=== PATIENT | female | born 1950 | race Caucasian/White ===

== ENCOUNTER 2020-10-04 08:29 | Outpatient (RCR) | payer MEDICARE, SELFPAY ==
[2020-10-04] MEDS: COVID-19 VACC, MRNA(PFIZER)/PF 30 MCG/0.3 ML SYRINGE IM (13:30)
[2020-10-25] MEDS: COVID-19 VACC, MRNA(PFIZER)/PF 30 MCG/0.3 ML SYRINGE IM (13:20)
== END 2021-01-01 23:59 ==
LOC: IMMUN 08:29
PROVIDERS: PCP Family Medicine; Visit Provider Family Medicine
DX: Z23 Encounter for immunization (principal)
CPT/HCPCS: 0001A; 0002A; 91300

== ENCOUNTER → 2020-12-20 11:29 | Outpatient (CLI) | payer MEDICARE, SELFPAY ==
--- NOTE | 2020-12-20 11:34 | RAD_ITS ---
STUDY: X-RAY CHEST REASON FOR EXAM: Female, 70 years old. Tobacco abuse. Leg weakness and cough. TECHNIQUE: PA and lateral views of the chest. COMPARISON: None. FINDINGS: The lungs are clear and expanded. There is no demonstrated pleural abnormality. Normal size heart. Normal mediastinum and jace. Normal visualized pulmonary arteries. There is atherosclerotic calcification of the aortic arch with tortuosity. There is demineralization of the osseous structures. There is degenerative osteoarthritis of the bilateral shoulders. There is no demonstrated abnormality of the visualized soft tissue structures of the upper abdomen. RAD/Chest PA and Lateral IMPRESSION: No acute cardiopulmonary disease. Electronically Signed: Marc Larkin DO at 16:47 EDT Tel [phone], Service support ,
--- NOTE | 2020-12-20 11:34 | RAD_ITS ---
STUDY: X-RAY - LUMBOSACRAL SPINE REASON FOR EXAM: Female, 70 years old. Ataxia. TECHNIQUE: 6 view(s) of the lumbosacral spine were obtained. COMPARISON: None FINDINGS: There is slight exaggeration of lumbar lordosis. There is a dextroscoliosis of the thoracolumbar spine with the convexity at L2. There is normal alignment of the vertebrae. There is demineralization of the lumbar vertebrae. There is multi-level degenerative disc disease with multi-level disc space narrowing. There is no evidence of acute fracture or loss of vertebral axial height.. There is no spondylolysis. Normal bilateral sacral ala, sacroiliac joints, and visualized sacrum. There is atherosclerotic calcification of the abdominal aorta without a demonstrated aneurysm. RAD/L/S Spine Bending Flex/Ext IMPRESSION: Scoliosis and degenerative changes of the lumbar spine. If there is concern for spinal cord or nerve root abnormality, MRI is recommended. Electronically Signed: Marc Larkin DO at 16:49 EDT Tel [phone], Service support ,
[2020-12-20 15:46] LABS: Absolute Lymphocyte Count 1.17 X10^3/uL (0.83-4.51); Basophil# 0.02 X10^3/uL; Basophil% 0.3 % (0-1); Eosinophil# 0.01 X10^3/uL; Eosinophils% 0.2 % (0-5); Erythrocyte Sedimentation Rate 23 mm/hr (0-30); Hematocrit 37.9 % (37-47); Hemoglobin 12.8 g/dL (12.0-15.0); Lymphocyte # 1.17 X10^3/ul (0.83-4.51); Lymphocyte % 19.2 % (19-41); Mean Corp Hgb Conc 33.8 g/dL (32-36); Mean Corpuscular Hgb 30.7 pg (27.0-32.0); Mean Corpuscular Volume 90.9 fL (81-99); Mean Platelet Vol. 9.2 fl (6.2-12.0); Monocyte# 0.88 X10^3/uL; Monocyte% 14.4 % (0-10); NRBC Flagged by Analyzer 0 % (0-5); Neutrophil # 4.01 X10^3/uL (2.7-7.7); Neutrophil % 65.7 % (47-70); Platelet Count 267 K/mm3 (150-450); RBC Distribution Width CV 13.6 % (11.6-14.6); RBC Distribution Width SD 45.3 fl (35.1-43.9); Red Blood Count 4.17 M/mm3 (4.2-5.4); White Blood Count 6.1 K/mm3 (4.4-11.0)
[2020-12-20 15:53] LABS: ALB/GLOB Ratio 1.2 RATIO (0.9-2.4); AST(SGOT) 24 U/L (15-37); Alanine Aminotransfer ALT/SGPT 32 U/L (13-56); Albumin, Serum 4.1 g/dL (3.2-5.0); Alkaline Phosphatase 60 U/L (45-117); Anion Gap 10 (5-15); BUN 6 mg/dL (7-18); BUN/Creat Ratio 8.7 RATIO (10-20); CRP < 2.90 mg/L (0.0-3.0); Calcium,Total 9.1 mg/dL (8.5-10.1); Chloride 97 mmol/L (98-107); Creatinine, Serum 0.69 mg/dL (0.55-1.02); EST Glomerular Filtration Rate 90 mL/min (>60); Est Glom Filt Rate - Afr Amer 108 mL/min (>60); Globulin 3.4 g/dL (2.2-4.2); Glucose 95 mg/dL (74-106); Potassium 4.1 mmol/L (3.5-5.1); Protein, Total 7.5 g/dL (6.4-8.2); Sodium Level 129 mmol/L (136-145); Thyroid Stim Hormone (TSH) 1.18 uIU/mL (0.358-3.74)
[2020-12-20 15:56] LABS: Syphilis Antibodies Non-reactive; Vitamin B12 344 pg/mL (211-911)
== END ==
PROVIDERS: PCP Family Medicine; Referring Provider Family Medicine; Visit Provider Family Medicine
DX: R27.8 Other lack of coordination (principal); Z72.0 Tobacco use
CPT/HCPCS: 71046; 72120; 80053; 82607; 82746; 84443; 85025; 85652; 86140; 86780

== ENCOUNTER → 2020-12-28 07:03 | Outpatient (CLI) | payer MEDICARE, SELFPAY ==
[2020-12-28 10:16] LABS: Urine Sodium 79 mmol/L (Not Establ.)
[2020-12-28 10:27] LABS: Anion Gap 8 (5-15); BUN 6 mg/dL (7-18); BUN/Creat Ratio 7.9 RATIO (10-20); Calcium,Total 9.2 mg/dL (8.5-10.1); Chloride 96 mmol/L (98-107); Creatinine, Serum 0.76 mg/dL (0.55-1.02); EST Glomerular Filtration Rate 80 mL/min (>60); Est Glom Filt Rate - Afr Amer 96 mL/min (>60); Glucose 108 mg/dL (74-106); Magnesium 2.4 mg/dL (1.6-2.6); Potassium 4.3 mmol/L (3.5-5.1); Sodium Level 130 mmol/L (136-145)
== END ==
PROVIDERS: PCP Family Medicine; Referring Provider Family Medicine; Visit Provider Family Medicine
DX: R79.89 Other specified abnormal findings of blood chemistry (principal)
CPT/HCPCS: 36415; 80048; 82570; 83735; 84300

== ENCOUNTER → 2021-01-08 14:50 | Outpatient (CLI) | payer MEDICARE, SELFPAY ==
--- NOTE | 2021-01-08 14:54 | CT_ITS ---
STUDY: CT CHEST WITH CONTRAST REASON FOR EXAM: Female, 70 years old. Tobacco abuse and new onset SIADH RADIATION DOSAGE (If Supplied By Facility): CTDIvol = ( 6.48 ) mGy, DLP = ( 222.51 ) mGycm TECHNIQUE: Transaxial imaging was performed following intravenous administration of IV 100mL Isovue-300. Individualized dose optimization techniques were used for this CT. COMPARISON: None. FINDINGS: Heterogeneous right thyroid. Recommend dedicated thyroid ultrasound for further evaluation. The lungs are normal. There is no demonstrated pleural abnormality. There are calcifications of the coronary arteries. Normal mediastinum. Normal hilar regions. Normal enhanced pulmonary arteries. Normal aorta arch and descending thoracic aorta. Normal osseous structures. There is no demonstrated abnormality of the visualized upper abdomen. CT/Chest WITH Contrast IMPRESSION: Heterogeneous right thyroid. Recommend thyroid ultrasound for further evaluation. Normal lung parenchyma. Electronically Signed: Kirill Cheng MD at 21:56 EDT Tel , Service support ,
== END ==
PROVIDERS: PCP Family Medicine; Referring Provider Family Medicine; Visit Provider Family Medicine
DX: E22.2 Syndrome of inappropriate secretion of antidiuretic hormone (principal); Z72.0 Tobacco use
CPT/HCPCS: 71260; Q9967

== ENCOUNTER → 2021-01-09 07:12 | Outpatient (CLI) | payer MEDICARE, SELFPAY ==
--- NOTE | 2021-01-09 07:21 | MRI_ITS ---
HISTORY: Ataxia. TECHNIQUE: Multiplanar and multisequence MR images of the brain were obtained without and with IV gadolinium. IV Contrast dosage and agent: 10 cc dotarem. # of images incl. paperwork: 327. COMPARISON: None. FINDINGS: BRAIN PARENCHYMA: Advanced increased T2 FLAIR signal in the bilateral cerebral white matter. Chronic basal ganglia and thalamic lacunar infarcts. No abnormal focus of restricted diffusion. No enhancing lesion in the brain parenchyma. INTRACRANIAL HEMORRHAGE: No acute intracranial hemorrhage. CSF SPACES: Moderate generalized volume loss. No midline shift or other significant mass effect. No extra-axial fluid collection. VESSELS: Major intracranial flow voids maintained. ORBITS: Symmetric in appearance. PARANASAL SINUSES: Fluid in the maxillary sinuses. MRI/Brain W/WO Contrast IMPRESSION: No evidence of enhancing intracranial mass, acute infarct, or acute intracranial hemorrhage. Advanced chronic involutional and white matter changes. at 1031 Reported and signed by: Sarah Sellers MD Electronically Signed: Sarah Sellers MD at 10:30 EDT Tel , Service support ,
== END ==
PROVIDERS: PCP Family Medicine; Referring Provider Family Medicine; Visit Provider Family Medicine
DX: R27.8 Other lack of coordination (principal)
CPT/HCPCS: 70553; A9575

== ENCOUNTER → 2021-01-11 12:03 | Outpatient (CLI) | payer MEDICARE, SELFPAY ==
--- NOTE | 2021-01-11 12:07 | US_ITS ---
STUDY: THYROID ULTRASOUND REASON FOR EXAM: Female, 70 years old. heterogenous TECHNIQUE: Ultrasound evaluation of the thyroid was performed with real-time and static childers-scale imaging. COMPARISON: CT the chest 01/08/2021 FINDINGS: RIGHT LOBE: The right lobe of the thyroid gland measures 4.3 x 1.9 x 1.7 cm. There is a heterogeneous echotexture. Nodule 1:12 x 8 x 10 mm solid isoechoic wider than tall ill-defined marginated nodule with no echogenic foci (TR 3) in the medial right lobe consistent with an adenoma. LEFT LOBE: The left lobe of the thyroid gland measures 3.0 x 1.2 x 0.8 cm. There is a heterogeneous echotexture. Nodule 2:6 x 4 x 6 mm solid hypoechoic wider than tall ill-defined marginated nodule with no echogenic foci (TR 4) in the posterior left lobe consistent with an adenoma. ISTHMUS: The isthmus measures 3 mm thick. . The regional lymph nodes are normal. US/Thyroid IMPRESSION: Thyroiditis with 2 small adenomas. Electronically Signed: Darío Maria MD at 16:58 EDT Tel , Service support ,
== END ==
PROVIDERS: PCP Family Medicine; Referring Provider Family Medicine; Visit Provider Family Medicine
DX: R93.89 Abnormal findings on diagnostic imaging of other specified body structures (principal)
CPT/HCPCS: 76536

== ENCOUNTER → 2021-02-12 08:35 | Outpatient (CLI) | payer MEDICARE, SELFPAY ==
[2021-02-12 10:05] LABS: Absolute Lymphocyte Count 1.66 X10^3/uL (0.83-4.51); Absolute Neutrophil Count 4.3 X10^3/uL (2.0-7.7); Basophil# 0.04 X10^3/uL; Basophil% 0.6 % (0-1); Eosinophil# 0.05 X10^3/uL; Eosinophils% 0.7 % (0-5); Hematocrit 38.5 % (37-47); Hemoglobin 12.9 g/dL (12.0-15.0); Lymphocyte # 1.66 X10^3/ul (0.83-4.51); Lymphocyte % 23.4 % (19-41); Mean Corp Hgb Conc 33.5 g/dL (32-36); Mean Corpuscular Hgb 30.9 pg (27.0-32.0); Mean Corpuscular Volume 92.3 fL (81-99); Mean Platelet Vol. 8.9 fl (6.2-12.0); Monocyte# 0.99 X10^3/uL; NRBC Flagged by Analyzer 0 % (0-5); Neutrophil # 4.32 X10^3/uL (2.7-7.7); Platelet Count 293 K/mm3 (150-450); RBC Distribution Width CV 13.4 % (11.6-14.6); RBC Distribution Width SD 45.9 fl (35.1-43.9); Red Blood Count 4.17 M/mm3 (4.2-5.4); White Blood Count 7.1 K/mm3 (4.4-11.0)
[2021-02-12 10:29] LABS: ALB/GLOB Ratio 1.2 RATIO (0.9-2.4); AST(SGOT) 15 U/L (15-37); Alanine Aminotransfer ALT/SGPT 25 U/L (13-56); Albumin, Serum 4.1 g/dL (3.2-5.0); Alkaline Phosphatase 76 U/L (45-117); Anion Gap 8 (5-15); BUN 11 mg/dL (7-18); BUN/Creat Ratio 14.8 RATIO (10-20); Chloride 95 mmol/L (98-107); Creatinine, Serum 0.74 mg/dL (0.55-1.02); EST Glomerular Filtration Rate 82 mL/min (>60); Est Glom Filt Rate - Afr Amer 99 mL/min (>60); Globulin 3.5 g/dL (2.2-4.2); Glucose 112 mg/dL (74-106); Potassium 4.3 mmol/L (3.5-5.1); Protein, Total 7.6 g/dL (6.4-8.2); Sodium Level 130 mmol/L (136-145); Thyroid Stim Hormone (TSH) 0.97 uIU/mL (0.358-3.74); Vitamin B12 735 pg/mL (211-911)
[2021-02-12 16:10] LABS: Microalbumin,Random Urine 13.2 mg/L (NO RANGE EST.); Microalbumin:Creatinine Ratio 10.2 mg/g CRE (<30 mg/g CRE); Urine Sodium 62 mmol/L (Not Establ.)
== END ==
PROVIDERS: PCP Family Medicine; Visit Provider Family Medicine
DX: R27.0 Ataxia, unspecified (principal); E22.2 Syndrome of inappropriate secretion of antidiuretic hormone; I10 Essential (primary) hypertension
CPT/HCPCS: 36415; 80053; 82043; 82570; 82607; 84300; 84443; 85025

== ENCOUNTER → 2021-03-25 07:19 | Outpatient (CLI) | payer MEDICARE, SELFPAY ==
[2021-03-25 10:25] LABS: Anion Gap 4 (5-15); BUN 18 mg/dL (7-18); BUN/Creat Ratio 26.8 RATIO (10-20); Chloride 102 mmol/L (98-107); Cholesterol 238 mg/dL (200); Creatinine, Serum 0.67 mg/dL (0.55-1.02); EST Glomerular Filtration Rate 92 mL/min (>60); Est Glom Filt Rate - Afr Amer 111 mL/min (>60); Glucose 104 mg/dL (74-106); High Density Lipoprotein 79 mg/dL; Potassium 3.9 mmol/L (3.5-5.1); Sodium Level 134 mmol/L (136-145); Triglycerides 89 mg/dL; Very Low Density Lipoprotein 18 mg/dL (5-40)
[2021-03-25 10:33] LABS: Hemoglobin A1c 5.6 % (3.8-5.6)
[2021-03-27 14:20] LABS: Vitamin D 1,25-Dihydroxy 32.1 pg/mL (19.9-79.3)
== END ==
PROVIDERS: PCP Family Medicine; Referring Provider Psychiatry & Neurology Neurology; Visit Provider Psychiatry & Neurology Neurology
DX: M85.80 Other specified disorders of bone density and structure, unspecified site (principal); G62.9 Polyneuropathy, unspecified; I10 Essential (primary) hypertension; R73.9 Hyperglycemia, unspecified
CPT/HCPCS: 36415; 80048; 80061; 82652; 83036; 83883; 84425

== ENCOUNTER → 2021-03-29 12:22 | Outpatient (CLI) | payer MEDICARE, SELFPAY ==
--- NOTE | 2021-03-29 12:24 | MRI_ITS ---
STUDY: MRI LUMBAR SPINE WITHOUT CONTRAST REASON FOR EXAM: Female, 70 years old. Scoliosis, gait disorder TECHNIQUE: Standardized fat and water weighted pulse sequences were obtained in the sagittal and axial planes. COMPARISON: X-ray 12/20/2020 FINDINGS: T12-L1: Normal endplates. Normal disc height, hydration and morphology. Normal bilateral facet joints. Normal central canal and bilateral lateral recesses. Normal bilateral intervertebral neural foramina. Normal lumbar lordosis. Mild S-shaped scoliosis with dextroscoliosis of the thoracic lumbar spine levoscoliosis lower lumbar spine. Normal conus medullaris that terminates at the T12/L1. L1-2: Large central disc protrusion produces severe spinal stenosis with severe bilateral lateral recess stenosis with effacement of the L2 nerve roots bilaterally and moderate left neural foraminal stenosis. L2-3: Mild bilateral facet hypertrophy and moderate ligament flavum hypertrophy. Moderate bilobed disc protrusion produces moderate spinal stenosis with moderate bilateral lateral recess stenosis with abutment of the L3 nerve roots bilaterally and mild left neural foraminal stenosis. L3-4: Mild bilateral facet hypertrophy and moderate ligament flavum hypertrophy. Moderate bilobed disc protrusion produces moderate spinal stenosis with moderate bilateral lateral recess stenosis with abutment of the L4 nerve roots bilaterally and moderate bilateral neural foraminal stenosis. L4-5: Mild bilateral facet hypertrophy and ligament flavum hypertrophy. Mild broad disc protrusion produces mild spinal stenosis and mild right neural foraminal stenosis. L5-S1: Mild bilateral facet hypertrophy and ligament flavum hypertrophy. No disc protrusion, spinal stenosis, neural foraminal stenosis. Normal visualized sacral ala. Normal visualized paraspinous soft tissue structures. MRI/Spine Lumbar (Routine) IMPRESSION: S-shaped scoliosis with degenerative disc disease as described above. Electronically Signed: Darío Maria MD at 14:37 EDT Tel , Service support ,
--- NOTE | 2021-03-29 12:24 | MRI_ITS ---
STUDY: MRI CERVICAL SPINE WITHOUT CONTRAST REASON FOR EXAM: Female, 70 years old. Myelopathy TECHNIQUE: Standardized fat and water weighted pulse sequences were obtained in the sagittal and axial planes. COMPARISON: None FINDINGS: Normal foramen magnum and brainstem-cervical cord junction. Normal craniovertebral junction. Normal anterior atlantoaxial articulation. Normal odontoid process. Normal cervical lordosis. Normal vertebral bodies and posterior osseous elements. C2-3: Normal endplates. Normal disc height, signal and morphology. Normal central canal and intervertebral neural foramina. C3-4: Normal endplates. Normal disc height, signal and morphology. Normal central canal and intervertebral neural foramina. C4-5: Mild bilobed disc osteophyte complex and bilateral uncovertebral joint hypertrophy produces moderate spinal stenosis with abutment of the central spinal cord and moderate bilateral neural foraminal stenosis. C5-6: Mild bilobed disc osteophyte complex and bilateral uncovertebral joint hypertrophy produces moderate spinal stenosis with abutment of the central spinal cord and moderate bilateral neural foraminal stenosis. C6-7: Mild bilateral disc osteophyte complex and bilateral degenerative hypertrophy produce mild spinal stenosis and mild bilateral neural foraminal stenosis. C7-T1: Normal endplates. Normal disc height, signal and morphology. Normal central canal and intervertebral neural foramina. Normal cervical cord. Normal visualized soft tissue structures. MRI/Spine Cervical (Routine) IMPRESSION: Multilevel degenerative changes, as described above. Electronically Signed: Darío Maria MD at 17:08 EDT Tel , Service support ,
== END ==
PROVIDERS: PCP Family Medicine; Referring Provider Psychiatry & Neurology Neurology; Visit Provider Psychiatry & Neurology Neurology
DX: G95.9 Disease of spinal cord, unspecified (principal); M85.80 Other specified disorders of bone density and structure, unspecified site; M41.9 Scoliosis, unspecified; R26.9 Unspecified abnormalities of gait and mobility
CPT/HCPCS: 72141; 72148

== ENCOUNTER → 2021-04-18 14:17 | Outpatient (CLI) | payer MEDICARE, SELFPAY ==
[2021-04-23 16:09] LABS: Albumin 3.8 g/dL (2.9-4.4); Alpha-1-Globulins 0.3 g/dL (0.0-0.4); Alpha-2-Globulins 0.7 g/dL (0.4-1.0); Gamma Globulin 0.8 g/dL (0.4-1.8); Immunoglobulin A 149 mg/dL (64-422); Immunoglobulin G 815 mg/dL (586-1602); Immunoglobulin M 43 mg/dL (26-217); PROEL- TOTAL PROTEIN 6.8 g/dL (6.0-8.5)
[2021-04-23 16:19] LABS: IMMUNOFIXATION RESULT,S Comment: (.)
== END ==
PROVIDERS: PCP Family Medicine; Referring Provider Psychiatry & Neurology Neurology; Visit Provider Psychiatry & Neurology Neurology
DX: G62.9 Polyneuropathy, unspecified (principal)
CPT/HCPCS: 36415; 82784; 84165; 86334; 86335

== ENCOUNTER 2021-04-23 12:00 | Outpatient (RCR) | payer MEDICARE, SELFPAY ==
--- NOTE | 2021-01-02 09:48 | HP.PTEVAL_ITS ---
Patient's Visit Information CHUCKY MCGOVERN is a 70 year old F referred to Physical Therapy by Dr. Lalit Blount MD with a diagnosis of gait ataxia. Date of Evaluation: 01/02/21 Physical Therapist: Lalit Ha, DPT, OCS, CSCS - Visit Plan Frequency: 2x /Week Duration: 2 Months Plan: 2x/week for 4-10 weeks . Please start with... Gait training with wh walker(contacting doctor to get scirpt and give to patient when it arrives, told son and pt that wheels for her walker at home are appropriate and necessary for safe community ambulation and recommended using at home). Blanace training with FW weight shift, narrow JONATAN, gait training with decreasing AD, foam balance, VOR balance and sink strnghening progressing to I home progrram as safety allows. - Subjective Can't walk well. Has been worsening over since covid started adn did nto go a nywhere or do anything. Has small house and did not leave house. Used cane. Did not need AD prior to covid. Does nto have neuropathy, no numbness or tingly. Feel weak when she is moving. No spinning or dizzyness. Feels unsteady when walking. No regular exercises except a little stationary bike at home. Does some leg lifts and knee bends. Lives alone, drives and can get in and ut of car well. Just hard to walk once she gets places. Dresses self without problem. Has steps to basement whcih she does not need to use. Two steps into house and putting up railing. Holds onto someone as needed. takes trash out carefully, no falls. Laundry is in basement and does that once per week throwing clothes down and doing one step at time with basket. Has cane that she uses. has walker that she does not like. Basic ADL including take care of two dogs on own. Hobbies are reading and taking care of two pomerenes. Has some LBP stiffness frankie m but it works out as she moves. - Objective Ambulates slow with cane and very wide JONATAN. 4 minutes to go 300 feet to eval room. Trasnfers I without EU btu balance challenging standing without holding on at first. Romberg eo 30 and ec 30 with mild perturbations after she gets set in psoition. Foam balance ft eo unable. Would be unable to complete Neurocom balance test at this point but it might be appropriate in the future. Steps require UE and pulling, hesitant to shift weight Fw and puts half foot on next step. LE strength ankles and knees 4- and hips 3+ abd and ext adn 4- flexion. reflexes 3/3 patella and achilles with possible clunic beats achilles. Sensation to gross lgiht touch WNL in LE. UE AROM WNL. coordination to reciprocal toe and heel tap is slight deficits B, heel to udrán test is OK. Pt has defintie neuropathic gait pattern without weight shift Fw, wide JONATAN and small steps but seems to have all the other basics to stay balanced and walk. Walks with wh walker with much better step length and narrower JONATAN safely but L step is still short and VC needed to stay in walker. Recommended wh walker for home. - Balance Scores Functional Gait Assessment Score: 12 % Disability: 60.0000 - Goals Goal 1:: Walk with wh walker home adn community safely and functionally from car into business Goal Time Frame: 4-6 Weeks Goal 2:: FGA to help diminish fall risk Goal Time Frame: 4-6 Weeks Goal 3:: I appropiate HEP to minimize future problems Goal Time Frame: 4-6 Weeks Goal 4:: Pt feel 75% back to normal gait and mobility Goal Time Frame: 4-6 Weeks - Rehabilitation Potential Physical Therapy Diagnosis: gait ataxia causing difficulty with mobility Rehabilitation Potential: Fair - Anticipated Interventions Patient/Client Instruction: Educate patient on: Condition, Risk Factors For the Purpose of:: To improve muscle performance and motor function, To increase tolerance to activity/condition/position, To improve ability of physical actions for home/community/work/leisure, To improve safety with gait Therapeutic Exercise to Include: Strength training, Balance training, Coordination, Gait and locomotor training, Neuromotor development For the Purpose of:: To increase ROM, To improve muscle performance and motor function, To increase tolerance to activity/condition/position, To improve gait and locomotor functions, To improve safety Assistive Devices: Wheeled walker For the Purpose of:: To improve safety with gait Thank you for the opportunity to evaluate your patient. For Medicare and Medicare HMO plans, please review the plan of care and approve it. It will need to be FAXED BACK to us at [phone] for Medicare purposes. For Medicare only, by signing this I certify the plan of care. Please let me know if there are questions or concerns regarding this plan of care. Physician Signature: Date:
--- NOTE | 2021-02-06 11:20 | HP.PTREVAL ---
Dr. Lalit Blount MD, It has been my pleasure to treat CHUCKY MCGOVERN over the last 8 visits for gait ataxia. Please see the progress note below for an update on the physical therapy plan of care! Subjective: Some better overall. Can carry cup of coffee without lid and does not spill it. Balance is good, no falls. No walker used except away from home and just feels better with it. Activities are pretty good at home. No dizzyness in a long time. To doctor next week. Doing sink exercises at home a couple times per day. More balance activities requested. Objective/Function: 20 poits better on DHI. FGA is 7 points better than eval. Gait is still hesitant with wide JONATAN adn lots of side to side movement adn high gaurd with UE, can somewhat correcct with VC. Wh walker still approrpiate and emphasized this today. appropriate to cotninue for balance work with fair prognosis. Plan Plan: 2x/week for 4 weeks to work on gait with narrow JONATAN, balance ex with narrow JONATAN adn step with narrow JONATAN, progress to home balance ex. Pt can ow do her strength at home. Goals Goal 1:: Walk with wh walker home adn community safely and functionally from car into business Goal Time Frame: 4-6 Weeks Goal Progress: Goal Met Goal 2:: FGA to help diminish fall risk Goal Time Frame: 4-6 Weeks Goal Progress: Progressing, approp. Goal 3:: I appropiate HEP to minimize future problems Goal Time Frame: 4-6 Weeks Goal Progress: strength met Goal 4:: Pt feel 75% back to normal gait and mobility Goal Time Frame: 4-6 Weeks Goal Progress: 70% progressing, approp Anticipated Interventions Patient/Client Instruction: Educate patient on: Condition, Risk Factors For the Purpose of:: To improve muscle performance and motor function, To increase tolerance to activity/condition/position, To improve ability of physical actions for home/community/work/leisure, To improve safety with gait Therapeutic Exercise to Include: Strength training, Balance training, Coordination, Gait and locomotor training, Neuromotor development For the Purpose of:: To increase ROM, To improve muscle performance and motor function, To increase tolerance to activity/condition/position, To improve gait and locomotor functions, To improve safety Assistive Devices: Wheeled walker For the Purpose of:: To improve safety with gait Please do not hesitate to contact me at [phone] by phone or if you have questions or concerns regarding this new plan of care! Sincerely, Lalit Ha, DPT, OCS, CSCS
--- NOTE | 2021-03-20 11:33 | HP.PTREVAL_ITS ---
Dr. Lalit Blount MD, It has been my pleasure to treat CHUCKY MCGOVERN over the last 15 visits for gait ataxia. Please see the progress note below for an update on the physical therapy plan of care! Subjective: Doing better.Using cane at home adn no problems. No falls. Balance is improving. Doing execises daily at home. Using wh walker still for longer distances. Stillw ants to walk better meaning without AD. Will have MRI on low back to see if it has effect on legs, also will have NCT. Objective/Function: FGA +2 since last recheck and going the right way. Sill recommend walker at home . Tends to stop feet movement near chair and lean and reach to sit in chair. JONATAN is still wide adn steps still tend to be short and shuffle but can correct with VC to a nice gait pattern for 2-3 steps before digressing back. Overall improved and willing to do HEP and continue weekly in PT as ordered for gait training. Plan Plan: weekly x 4 for gait training working on wide JONATAN, bigger steps and functional balance challenges. Ensure transition safely at chair. If needed, progress home balance and strength ex. Fair prognosis Balance/Gait/Functional tests - Balance/Special Test Scores Functional Gait Assessment Score: 21 % Disability: 30.0000 Dizziness Score: 16 Goals Goal 1:: Walk with wh walker home adn community safely and functionally from car into business Goal Time Frame: 4-6 Weeks Goal Progress: Goal Met Goal 2:: FGA to help diminish fall risk Goal Time Frame: 4-6 Weeks Goal Progress: 21, progressing Goal 3:: I appropiate HEP to minimize future problems Goal Time Frame: 4-6 Weeks Goal Progress: Goal Met Goal 4:: Pt feel 75% back to normal gait and mobility Goal Time Frame: 4-6 Weeks Goal Progress: Goal Met Goal 5:: Walk 150 feet with narrow JONATAN and no short steps and trasnition to sitting wtihotu leaning and reaching for chair prior to turning around. Goal Time Frame: 2-4 Weeks Goal Progress: NEW GOAL Anticipated Interventions Patient/Client Instruction: Educate patient on: Condition, Risk Factors For the Purpose of:: To improve muscle performance and motor function, To increase tolerance to activity/condition/position, To improve ability of physical actions for home/community/work/leisure, To improve safety with gait Therapeutic Exercise to Include: Strength training, Balance training, Coordination, Gait and locomotor training, Neuromotor development For the Purpose of:: To increase ROM, To improve muscle performance and motor f unction, To increase tolerance to activity/condition/position, To improve gait and locomotor functions, To improve safety Assistive Devices: Wheeled walker For the Purpose of:: To improve safety with gait Please do not hesitate to contact me at [phone] by phone or if you have questions or concerns regarding this new plan of care! Sincerely, Lalit Ha, DPT, OCS, CSCS
--- NOTE | 2021-04-23 12:55 | HP.PTDCSUM ---
It has been my pleasure to treat CHUCKY MCGOVERN referred by Dr. Lalit Blount MD, with the diagnosis of gait ataxia for a total of 19 visit(s). Discharge Date: 04/23/21 Please see the following information for a summary of their discharge status. Subjective: Doing home exercises and they are helping. No pain. Mornings are very steady adn worse as day goes unsteady. using cane to get around. Worse after nap. Does ex daily. 2x10. Using walker away from home and cane at home sometimes with nothing. No falls lately. Saw neurologist and thinks. % Improvement: 90 Objective/Function: Pt gait is still wide JONATAN and poor FW weight shift most notable on steps. Needs aD for safety and recommended use wh walker 100%. Educated on neuropathic gait pattern and that she is not improving. Goal 1:: Walk with wh walker home adn community safely and functionally from car into business Goal Progress: Goal Met Goal 2:: FGA to help diminish fall risk Goal Progress: Not Progressing Goal 3:: I appropiate HEP to minimize future problems Goal Progress: Goal Met Goal 4:: Pt feel 75% back to normal gait and mobility Goal Progress: Goal Met Goal 5:: Walk 150 feet with narrow JONATAN and no short steps and trasnition to sitting wtihotu leaning and reaching for chair prior to turning around. Goal Progress: Not Progressing Plan: d/c due to lack of improvement. Needs to do ex and use wh walker regualrly. Will have NCT for neuroapthy. Discharge Comments: Pt to continue HEP. If there are questions or concerns regarding this patient's physical therapy, please feel free to call me at [phone]. Thank you for the referral of this patient. Sincerely, Lalit Ha, DPT, OCS, CSCS Balance/Gait/Functional tests - Balance/Special Test Scores Functional Gait Assessment Score: 19 % Disability: 36.6700 Dizziness Score: 28
== END 2021-04-23 15:37 | disposition home or self-care (01) ==
LOC: PT 12:00
PROVIDERS: PCP Family Medicine; Referring Provider Family Medicine; Visit Provider Family Medicine
DX: R27.0 Ataxia, unspecified (principal)
CPT/HCPCS: 97110; 97116; 97162; 97164; 97530

== ENCOUNTER → 2021-05-29 08:32 | Outpatient (CLI) | payer MEDICARE, SELFPAY ==
--- NOTE | 2021-05-29 10:16 | NEURO ---
NCS and/or EMG Patient Report Ordering Doctor: Kieran Pepe DATE OF SERVICE: 05/29/21 Ino presents for electrodiagnostic testing of the lower limbs. She reports weakness in the legs, worse on the left side. She reports intermittent low back pain Electrodiagnostic Testing: Normal peroneal and tibial motor studies. F-waves and H-reflexes are within normal limits. Sensory responses are normal. Needle EMG testing shows no evidence of denervation with normal motor unit action potentials. Electrodiagnostic impression: This is a normal electrodiagnostic study in the lower limbs. There is no electrodiagnostic evidence for peripheral neuropathy, myopathy or lumbosacral radiculopathy.
== END ==
PROVIDERS: PCP Family Medicine; Referring Provider Psychiatry & Neurology Neurology; Visit Provider Psychiatry & Neurology Neurology
DX: G62.89 Other specified polyneuropathies (principal); M85.80 Other specified disorders of bone density and structure, unspecified site
CPT/HCPCS: 95886; 95912

== ENCOUNTER → 2021-07-02 07:07 | Outpatient (CLI) | payer MEDICARE, SELFPAY ==
[2021-07-02 10:23] LABS: Hematocrit 37.1 % (37-47); Hemoglobin 12.6 g/dL (12.0-15.0); Mean Corpuscular Hgb 32.1 pg (27.0-32.0); Mean Corpuscular Volume 94.4 fL (81-99); Mean Platelet Vol. 9.3 fl (6.2-12.0); Platelet Count 252 K/mm3 (150-450); RBC Distribution Width CV 13.2 % (11.6-14.6); RBC Distribution Width SD 45.8 fl (35.1-43.9); Red Blood Count 3.93 M/mm3 (4.2-5.4)
[2021-07-02 10:46] LABS: Osmolality, Serum 296 mOsm/KG (280-301)
[2021-07-02 10:46] LABS: Osmolality, Urine 680 mOsm/KG
[2021-07-02 10:48] LABS: ALB/GLOB Ratio 1.2 RATIO (0.9-2.4); AST(SGOT) 13 U/L (15-37); Alanine Aminotransfer ALT/SGPT 26 U/L (13-56); Albumin, Serum 4.2 g/dL (3.2-5.0); Alkaline Phosphatase 67 U/L (45-117); Anion Gap 6 (5-15); BUN 16 mg/dL (7-18); Calcium,Total 9.1 mg/dL (8.5-10.1); Chloride 103 mmol/L (98-107); Cholesterol 179 mg/dL (200); Creatinine, Serum 0.84 mg/dL (0.55-1.02); EST Glomerular Filtration Rate 71 mL/min (>60); Est Glom Filt Rate - Afr Amer 86 mL/min (>60); Globulin 3.4 g/dL (2.2-4.2); Glucose 101 mg/dL (74-106); High Density Lipoprotein 87 mg/dL; Potassium 4.5 mmol/L (3.5-5.1); Protein, Total 7.6 g/dL (6.4-8.2); Sodium Level 137 mmol/L (136-145); Triglycerides 62 mg/dL; Very Low Density Lipoprotein 12 mg/dL (5-40)
[2021-07-02 10:50] LABS: Microalbumin,Random Urine 8.2 mg/L (NO RANGE EST.); Microalbumin:Creatinine Ratio 8.8 mg/g CRE (<30 mg/g CRE); Urine Sodium 142 mmol/L (Not Establ.)
== END ==
PROVIDERS: PCP Family Medicine; Referring Provider Family Medicine; Visit Provider Family Medicine
DX: I10 Essential (primary) hypertension (principal); E78.00 Pure hypercholesterolemia, unspecified; E22.2 Syndrome of inappropriate secretion of antidiuretic hormone
CPT/HCPCS: 36415; 80053; 80061; 82043; 82570; 83930; 83935; 84300; 85027

== ENCOUNTER 2021-09-27 07:03 | Outpatient (CLI) | payer MEDICARE, SELFPAY ==
[2021-09-27 10:16] LABS: ALB/GLOB Ratio 1.1 RATIO (0.9-2.4); AST(SGOT) 24 U/L (15-37); Alanine Aminotransfer ALT/SGPT 29 U/L (13-56); Alkaline Phosphatase 58 U/L (45-117); Anion Gap 5 (5-15); BUN 17 mg/dL (7-18); BUN/Creat Ratio 28.1 RATIO (10-20); Calcium,Total 9.6 mg/dL (8.5-10.1); Chloride 104 mmol/L (98-107); Cholesterol 178 mg/dL (200); Creatinine, Serum 0.61 mg/dL (0.55-1.02); EST Glomerular Filtration Rate 103 mL/min (>60); Est Glom Filt Rate - Afr Amer 125 mL/min (>60); Globulin 3.6 g/dL (2.2-4.2); Glucose 108 mg/dL (74-106); High Density Lipoprotein 95 mg/dL; Potassium 4.2 mmol/L (3.5-5.1); Protein, Total 7.6 g/dL (6.4-8.2); Sodium Level 134 mmol/L (136-145); Triglycerides 70 mg/dL; Very Low Density Lipoprotein 14 mg/dL (5-40)
[2021-09-30 17:07] LABS: Alpha-1-Globulins 0.3 g/dL (0.0-0.4); Alpha-2-Globulins 0.8 g/dL (0.4-1.0); Free Kappa Light Chains 17.1 mg/L (3.3-19.4); Free Lambda Light Chains 7.8 mg/L (5.7-26.3); Gamma Globulin 0.8 g/dL (0.4-1.8); Immunoglobulin A 159 mg/dL (64-422); Immunoglobulin G 838 mg/dL (586-1602); Immunoglobulin M 34 mg/dL (26-217); PROEL- TOTAL PROTEIN 6.8 g/dL (6.0-8.5)
[2021-09-30 19:00] LABS: IMMUNOFIXATION RESULT,S Comment: (.)
== END 2021-09-27 23:59 | disposition home or self-care (01) ==
LOC: MTLAB 07:10
PROVIDERS: PCP Family Medicine; Referring Provider Psychiatry & Neurology Neurology; Visit Provider Psychiatry & Neurology Neurology
DX: E78.5 Hyperlipidemia, unspecified (principal); G62.9 Polyneuropathy, unspecified
CPT/HCPCS: 36415; 80053; 80061; 82784; 83883; 84165; 86334

== ENCOUNTER 2022-01-08 11:00 | Outpatient (RCR) | payer MEDICARE, SELFPAY ==
--- NOTE | 2021-10-14 10:58 | HP.PTEVAL_ITS ---
Patient's Visit Information CHUCKY MCGOVERN is a 71 year old F referred to Physical Therapy by Dr. Kieran Pepe MD with a diagnosis of ABNORMALTIES OF GAIT AND MOBILITY,CEREBROVSACULAR DISEASE,SPINAL STENOSIS. Date of Evaluation: 10/14/21 Physical Therapist: Renny Pizarro, PT, Cert MDT, OCS - Visit Plan Frequency: 2x /Week Duration: 4 Weeks Plan: PT INTERVETIONS PROGRESSIVE GAIT AND BALANCE PROGRAM ,FUNCTIONAL STRENGTHENING ,DLS ,LE STRENGTHNEING AND POSTURAL EX'S - Subjective This 76 female presents to physical therapy with gait difficulty ,CVA and back pain . Patient had to prior strokes last was ~ over year ago. Patient has back pain in the morning. Symptoms get better as day goes on with movement . Denies paresthesia/tingling, but has h/o neuropathy. Bowel/bladder-. Patient has had MRI in past lumbar stenosis/HNP and cervical mod DDD and stenosis. Patient sleeps good. Coughing/sneezing -. Patient has no recent falls . Patient uses no device at home but use fww community and Dr Visits but occasionally uses cane. Patient has some difficulty with ADLS . Patient goals to walk better and improve balance. Patient lives [place] home with 3steps and 12 steps basement with rails. Tub/shower set up with seat. Patient was in PT last year has ex's. Patient condition affects QOL. SOCAIL: - Objective POSTURE: mild forward posture. GAIT: ambulates with fww reciprocal pattern mild forward posture ,and ambulates with no device mild ataxia ,increase JONATAN ,decrease step length and unsteady but no LOB. Dynamic: balance fair+. STAIRS: one step at time with rails. MMT( [employer]): quads 47,hamstrings 43,hip flexion 37 ,ankle 42 - Balance/Special Test Scores Functional Gait Assessment Score: 12 % Disability: 60.0000 CATSIB Score (Max score 120 seconds): 75 Lower Extremity Functional Score: 40 - Goals Goal 1:: Patient be I with HEP for balance and strengthening. Goal Time Frame: 4-6 Weeks Goal 2:: Patient to improve quality of gait with/without cane 90% of the time Goal Time Frame: 4-6 Weeks Goal 3:: Patient to improve CATSIB score by 5-10 points to improve nalance Goal Time Frame: 4-6 Weeks Goal 4:: Patient to improve functional gait assessment score by 5-10 pints to improve gait Goal Time Frame: 4-6 Weeks Goal 5:: Patient to improve LFES score by 5-10 points to improve gait and QOL Goal Time Frame: 4-6 Weeks Goal 6:: Patient to demonstrate 50 % improvement with decrease pain LBP and improve function Goal Time Frame: 4-6 Weeks - Rehabilitation Potential Physical Therapy Diagnosis: This patient has h/o CVA and spinal stenosis lumbar causes impairments with gait, function, balance and strength thus benefit from skilled PT Rehabilitation Potential: Good - Anticipated Interventions Patient/Client Instruction: Educate patient on: Condition, Plan of Care For the Purpose of:: To decrease pain, To increase ROM, To improve muscle performance and motor function, To improve ability to perform ADL's, To increase tolerance to activity/condition/position, To improve performance and independence with ADL's, To improve gait and locomotor functions, To increase flexibility/ROM, To improve endurance, To improve balance Therapeutic Exercise to Include: Strength training, Power training, Endurance training, Postural training, Flexibilty training, Gait and locomotor training, Dynamic Lumbar Stabilization For the Purpose of:: To decrease swelling/inflammation, To improve muscle performance and motor function, To improve ability to perform ADL's, To increase tolerance to activity/condition/position, To improve ability of physical actions for home/community/work/leisure, To improve gait and locomotor functions, To increase flexibility/ROM, To improve endurance, To improve balance, To assume or resume ADL's Thank you for the opportunity to evaluate your patient. For Medicare and Medicare HMO plans, please review the plan of care and approve it. It will need to be FAXED BACK to us at [phone] for Medicare purposes. For Medicare only, by signing this I certify the plan of care. Please let me know if there are questions or concerns regarding this plan of care. Physician Signature: Date:
--- NOTE | 2021-11-18 12:24 | HP.PTREVAL_ITS ---
Dr. Kieran Pepe MD, It has been my pleasure to treat CHUCKY MCGOVERN over the last 10 visits for ABNORMALTIES OF GAIT AND MOBILITY,CEREBROVSACULAR DISEASE,SPINAL STENOSIS. Please see the progress note below for an update on the physical therapy plan of care! Subjective: Doing okay Objective/Function: POSTURE: MILD FORWARD POSTURE. GAIT: ambulates with fww ataxia LE. BALANCE: FAIR+ WITH FWW. MMT: QUADS/HAMS 4/5,HIP FLEXION /ABD 4-/5. NEURO: ATAXIA LE , Plan Plan: CONT WITH POC 2XWEEK FOR 4WEEKS. PT INTERVETIONS PROGRESSIVE GAIT AND BALANCE PROGRAM ,FUNCTIONAL STRENGTHENING ,DLS ,LE STRENGTHNEING AND POSTURAL EX'S Balance/Gait/Functional tests - Balance/Special Test Scores Functional Gait Assessment Score: 12 % Disability: 60.0000 CATSIB Score (Max score 120 seconds): 75 Lower Extremity Functional Score: 40 Goals Goal 1:: Patient be I with HEP for balance and strengthening. Goal Time Frame: 4-6 Weeks Goal Progress: Progressing Goal 2:: Patient to improve quality of gait with/without cane 90% of the time Goal Time Frame: 4-6 Weeks Goal Progress: Progressing Goal 3:: Patient to improve CATSIB score by 5-10 points to improve nalance Goal Time Frame: 4-6 Weeks Goal Progress: Progressing Goal 4:: Patient to improve functional gait assessment score by 5-10 pints to i mprove gait Goal Time Frame: 4-6 Weeks Goal Progress: Progressing Goal 5:: Patient to improve LFES score by 5-10 points to improve gait and QOL Goal Time Frame: 4-6 Weeks Goal 6:: Patient to demonstrate 50 % improvement with decrease pain LBP and improve function Goal Time Frame: 4-6 Weeks Goal Progress: Progressing Anticipated Interventions Patient/Client Instruction: Educate patient on: Condition, Plan of Care For the Purpose of:: To decrease pain, To increase ROM, To improve muscle performance and motor function, To improve ability to perform ADL's, To increase tolerance to activity/condition/position, To improve performance and independence with ADL's, To improve gait and locomotor functions, To increase flexibility/ROM, To improve endurance, To improve balance Therapeutic Exercise to Include: Strength training, Power training, Endurance training, Postural training, Flexibilty training, Gait and locomotor training, Dynamic Lumbar Stabilization For the Purpose of:: To decrease swelling/inflammation, To improve muscle performance and motor function, To improve ability to perform ADL's, To increase tolerance to activity/condition/position, To improve ability of physical actions for home/community/work/leisure, To improve gait and locomotor functions, To increase flexibility/ROM, To improve endurance, To improve balance, To assume or resume ADL's Please do not hesitate to contact me at [phone] by phone or if you have questions or concerns regarding this new plan of care! Sincerely, Renny Pizarro, PT, Cert MDT, OCS
--- NOTE | 2022-04-02 13:22 | HP.PT.NRP ---
CHUCKY MCGOVERN was seen in my office for initial evaluation on 10/14/21. The following Plan of Care was established for this patient: Initial Frequency: 2x /Week Initial Duration: 4 Weeks Patient/Client Instruction: Educate patient on: Condition, Plan of Care For the Purpose of:: To decrease pain, To increase ROM, To improve muscle performance and motor function, To improve ability to perform ADL's, To increase tolerance to activity/condition/position, To improve performance and independence with ADL's, To improve gait and locomotor functions, To increase flexibility/ROM, To improve endurance, To improve balance Therapeutic Exercise to Include: Strength training, Power training, Endurance training, Postural training, Flexibilty training, Gait and locomotor training, Dynamic Lumbar Stabilization For the Purpose of:: To decrease swelling/inflammation, To improve muscle performance and motor function, To improve ability to perform ADL's, To increase tolerance to activity/condition/position, To improve ability of physical actions for home/community/work/leisure, To improve gait and locomotor functions, To increase flexibility/ROM, To improve endurance, To improve balance, To assume or resume ADL's This patient was last seen in our office . Pertinent comments regarding their Physical therapy will appear below: Patient was seen for PT gait abnormality and stenosis for balance training and strengthening for 17 visits At this point I will be discontinuing this patient from physical therapy. I would be happy to see this patient again in the future if found appropriate by the physician. Thank you! Renny Pizarro, PT, Cert MDT, OCS Balance/Gait/Functional tests - Balance/Special Test Scores Functional Gait Assessment Score: 12 % Disability: 60.0000 CATSIB Score (Max score 120 seconds): 75 Lower Extremity Functional Score: 40
== END 2022-01-08 19:00 | disposition home or self-care (01) ==
LOC: PT 11:00
PROVIDERS: PCP Family Medicine; Referring Provider Psychiatry & Neurology Neurology; Visit Provider Psychiatry & Neurology Neurology
DX: R26.89 Other abnormalities of gait and mobility (principal); I67.9 Cerebrovascular disease, unspecified; M51.26 Other intervertebral disc displacement, lumbar region; M48.061 Spinal stenosis, lumbar region without neurogenic claudication
CPT/HCPCS: 97110; 97162

== ENCOUNTER → 2022-03-28 | Outpatient (CLI) | payer MEDICARE, SELFPAY ==
[2022-03-28 10:34] LABS: ALB/GLOB Ratio 1.2 RATIO (0.9-2.4); AST(SGOT) 14 U/L (15-37); Alanine Aminotransfer ALT/SGPT 25 U/L (13-56); Alkaline Phosphatase 66 U/L (45-117); Anion Gap 7 (5-15); BUN 8 mg/dL (7-18); Calcium,Total 9.1 mg/dL (8.5-10.1); Chloride 101 mmol/L (98-107); Creatinine, Serum 0.73 mg/dL (0.55-1.02); EST Glomerular Filtration Rate 83 mL/min (>60); Est Glom Filt Rate - Afr Amer 101 mL/min (>60); Globulin 3.4 g/dL (2.2-4.2); Glucose 105 mg/dL (74-106); Potassium 4.2 mmol/L (3.5-5.1); Protein, Total 7.4 g/dL (6.4-8.2); Sodium Level 135 mmol/L (136-145)
[2022-03-28 10:41] LABS: Microalbumin,Random Urine 6.8 mg/L (NO RANGE EST.); Microalbumin:Creatinine Ratio 6.6 mg/g CRE (<30 mg/g CRE); Urine Sodium 96 mmol/L (Not Establ.)
[2022-03-28 10:42] LABS: AST(SGOT) 16 U/L (15-37); Alanine Aminotransfer ALT/SGPT 23 U/L (13-56); Alkaline Phosphatase 64 U/L (45-117); Bilirubin, Direct 0.16 mg/dL (0.00-0.30); Cholesterol 175 mg/dL (200); Globulin 3.5 g/dL (2.2-4.2); High Density Lipoprotein 102 mg/dL; Protein, Total 7.5 g/dL (6.4-8.2); Triglycerides 74 mg/dL; Very Low Density Lipoprotein 15 mg/dL (5-40)
[2022-03-28 10:47] LABS: Osmolality, Serum 287 mOsm/KG (280-301)
[2022-03-28 10:48] LABS: Osmolality, Urine 517 mOsm/KG
[2022-04-02 00:06] LABS: Albumin 4.6 g/dL (2.9-4.4); Alpha-1-Globulins 0.3 g/dL (0.0-0.4); Alpha-2-Globulins 0.8 g/dL (0.4-1.0); Free Kappa Light Chains 19.9 mg/L (3.3-19.4); Free Lambda Light Chains 9.7 mg/L (5.7-26.3); Gamma Globulin 0.6 g/dL (0.4-1.8); Immunoglobulin A 147 mg/dL (64-422); Immunoglobulin G 777 mg/dL (586-1602); Immunoglobulin M 32 mg/dL (26-217); PROEL- TOTAL PROTEIN 7.2 g/dL (6.0-8.5)
[2022-04-02 08:29] LABS: IMMUNOFIXATION RESULT,S Comment: (.)
== END | disposition home or self-care (01) ==
LOC: MTLAB 07:12
PROVIDERS: Psychiatry & Neurology Neurology; PCP Family Medicine; Referring Provider Family Medicine; Visit Provider Family Medicine
DX: E22.2 Syndrome of inappropriate secretion of antidiuretic hormone (principal); I10 Essential (primary) hypertension; G62.9 Polyneuropathy, unspecified; E78.5 Hyperlipidemia, unspecified
CPT/HCPCS: 36415; 80053; 80061; 80076; 82043; 82570; 82784; 83883; 83930; 83935; 84165; 84300; 86334

== ENCOUNTER → 2022-12-03 | Outpatient (CLI) | payer MEDICARE, SELFPAY ==
[2022-12-03 11:05] LABS: ALB/GLOB Ratio 1.3 RATIO (0.9-2.4); AST(SGOT) 14 U/L (15-37); Alanine Aminotransfer ALT/SGPT 20 U/L (13-56); Albumin, Serum 4.1 g/dL (3.2-5.0); Alkaline Phosphatase 72 U/L (45-117); Anion Gap 9 (5-15); BUN 8 mg/dL (7-18); BUN/Creat Ratio 10.8 RATIO (10-20); Calcium,Total 9.3 mg/dL (8.5-10.1); Chloride 99 mmol/L (98-107); Cholesterol 167 mg/dL (200); Creatinine, Serum 0.74 mg/dL (0.55-1.02); EST Glomerular Filtration Rate 82 mL/min (>60); Est Glom Filt Rate - Afr Amer 99 mL/min (>60); Globulin 3.1 g/dL (2.2-4.2); Glucose 104 mg/dL (74-106); High Density Lipoprotein 95 mg/dL; Potassium 4.1 mmol/L (3.5-5.1); Protein, Total 7.2 g/dL (6.4-8.2); Sodium Level 134 mmol/L (136-145); Triglycerides 55 mg/dL; Very Low Density Lipoprotein 11 mg/dL (5-40)
[2022-12-04 17:07] LABS: Albumin 4.1 g/dL (2.9-4.4); Alpha-1-Globulins 0.2 g/dL (0.0-0.4); Alpha-2-Globulins 0.8 g/dL (0.4-1.0); Free Kappa Light Chains 15.1 mg/L (3.3-19.4); Gamma Globulin 0.6 g/dL (0.4-1.8); IMMUNOFIXATION RESULT,S Comment: (.); Immunoglobulin A 138 mg/dL (64-422); Immunoglobulin G 730 mg/dL (586-1602); Immunoglobulin M 29 mg/dL (26-217); PROEL- TOTAL PROTEIN 6.7 g/dL (6.0-8.5)
== END | disposition home or self-care (01) ==
LOC: MTLAB 07:05
PROVIDERS: PCP Family Medicine; Referring Provider Psychiatry & Neurology Neurology; Visit Provider Psychiatry & Neurology Neurology
DX: E78.5 Hyperlipidemia, unspecified (principal); G62.9 Polyneuropathy, unspecified
CPT/HCPCS: 36415; 80053; 80061; 82784; 83883; 84165; 86334

== ENCOUNTER → 2023-01-23 | Outpatient (CLI) | payer MEDICARE, SELFPAY ==
--- NOTE | 2023-01-23 13:35 | CT_ITS ---
STUDY: LOW DOSE CT LUNG CANCER SCREENING REASON FOR EXAM: Female, 72 years old[facility], ongoing. After pack per day for 55 years. RADIATION DOSAGE (If Supplied By Facility): CTDIvol = ( 1.59 ) mGy, DLP = ( 44.46 ) mGycm TECHNIQUE: No contrast was administered. Low dose technique was utilized (average mAS-38 and kVp 120). 1.25 mm axial source images with a slice interval of 1.25-mm were reconstructed in lung windows. 2.5 mm axial source images with a slice interval of 2.5-mm were reconstructed in lung windows. 5.0 mm axial source images with a slice interval of 5.0-mm were reconstructed in soft tissue windows. COMPARISON: Comparison is made with prior study dated January 08, 2021. NODULES: No suspicious nodules are seen. Emphysema: Hyperinflation. Mild degree of emphysematous changes. No suspicious nodules are seen. Endobronchial lesion: Unremarkable. Aorta: Atherosclerotic plaque formation of the aortic arch. CORONARY ARTERIES: Coronary artery calcification is seen. Heart: Unremarkable Pulmonary artery: Unremarkable Mediastinal nodes: Small mediastinal lymph nodes. Other chest and abdominal findings: CT/Low Dose CT Lung Screening IMPRESSION: Lung-RADS category 2 - Continue annual screening with LDCT in 12 months. IMPORTANT NOTES FOR USE: ACR Lung-RADS Version 1.1 Assessment Categories Release Date: 2018 Category: Coded 0-4 bases on nodule(s) with highest degree of suspicion. Negative screen is defined as categories 1 and 2; a positive screen is defined as categories 3 and 4. Category 3 and 4A nodules that are unchanged on interval CT should be coded as category 2, and individuals returned to screening in 12 months. Category 4X: Category 3 or 4 nodules with additional imaging findings that increase the suspicion of lung cancer, such as spiculation, GGN that doubles in size in 1 year, enlarged lymph notes, etc. Category Modifiers: S (significant finding unrelated to lung cancer) Electronically Signed: Derrick Thomas MD at 14:34 EDT ,
== END | disposition home or self-care (01) ==
LOC: CT 13:27
PROVIDERS: PCP Family Medicine; Referring Provider Family Medicine; Visit Provider Family Medicine
DX: F17.210 Nicotine dependence, cigarettes, uncomplicated (principal)
CPT/HCPCS: 71271

== ENCOUNTER → 2023-02-10 | Outpatient (CLI) | payer MEDICARE, SELFPAY ==
--- NOTE | 2023-02-10 12:48 | BI_ITS ---
MAMMOGRAPHY - BILATERAL SCREENING 3-D TOMOSYNTHESIS REASON FOR EXAM: Female, 72 years old. Routine screening PERTINENT HISTORY: No significant family history. TECHNIQUE: 2-D mammograms and 3-D Tomosynthesis of the breast (s) were performed. CAD was performed. COMPARISON: No comparison mammograms available at this time. If any prior films become available, an addendum to this report can be generated. FINDINGS: The breast composition is almost entirely fat. Scattered benign calcifications are seen. No dense spiculated masses or suspicious microcalcifications are identified. No architectural distortion is identified. There is no skin thickening or retraction. There has been no significant change since the prior study. BI/SCRN MAMM (CAD)W/NEYDA BILAT IMPRESSION: No mammographic signs of malignancy. Routine yearly mammograms recommended. ASSESSMENT CATEGORY: BIRADS Category 1: Negative. A letter regarding these results will be sent to the patient by the facility within 30 days. FOLLOW UP RECOMMENDATION: Yearly follow up mammogram recommended. (A) Approximately 10% of breast cancers are not detected by mammography. A normal mammogram should not delay biopsy of a clinically suspicious abnormality. Electronically Signed: Regino Fletcher MD at 13:58 EDT ,
--- NOTE | 2023-02-10 12:57 | BD_ITS ---
STUDY: DUAL ENERGY X-RAY ABSORPTIOMETRY / DXA REASON FOR EXAM: Female, 72 years old. [id number] TECHNIQUE: Bone Mineral Density (BMD) measurements of lumbar spine and bilateral hips were obtained. COMPARISON: None. FINDINGS: Lumbar Spine (L1-L4): g/cm2 (0.997) / T-score (-0.5) / Z-score (1.9) Findings are suggestive of normal bone density with a low fracture risk. Left Femur Total: g/cm2 (0.652) / T-score (-2.4) / Z-score (-0.7) Left Femoral Neck: g/cm2 (0.538) / T-score (-2.8) / Z-score (-0.8) Right Femur Total: g/cm2 (0.685) / T-score (-2.1) / Z-score (-0.4) Right Femoral Neck: g/cm2 (0.528) / T-score (-2.9) / Z-score (-0.9) BD/Dexa Bone Density Study IMPRESSION: The patient is considered osteoporotic as outlined below according to World [employer] Organization (WHO) criteria with a high fracture risk. Reference Information: The T-score is the number of standard deviations above or below the standard which is normal for young adults at their peak bone mineral density. The World Health Organization (WHO) interprets the T-scores as follows: Above -1 Normal bone density Between -1 and -2.5 Osteopenia Equal to / or below -2.5 Osteoporosis As a practical clinical guideline, osteopenia may be graded as follows: Mild -1 through -1.5 Moderate -1.6 through -2.0 Severe -2.1 through -2.4 The Z-score is the number of standard deviations above or below age-matched controls. A Z-score of less than -1.5 would be considered abnormal. References: 1. NIH Osteoporosis and Related Bone Diseases www osteo.org 2. International Society for Clinical Densitometry www iscd.org 3. National Osteoporosis Foundation www nof.org Electronically Signed: Derrick Thomas MD at 15:05 EDT ,
== END | disposition home or self-care (01) ==
LOC: OPBD 12:47
PROVIDERS: PCP Family Medicine; Referring Provider Family Medicine; Visit Provider Family Medicine
DX: Z12.31 Encounter for screening mammogram for malignant neoplasm of breast (principal); N95.9 Unspecified menopausal and perimenopausal disorder
CPT/HCPCS: 77063; 77067; 77080

== ENCOUNTER → 2023-10-29 | Outpatient (CLI) | payer MEDICARE, SELFPAY ==
[2023-10-29 10:13] LABS: ALB/GLOB Ratio 1.3 RATIO (0.9-2.4); AST(SGOT) 16 U/L (15-37); Alanine Aminotransfer ALT/SGPT 19 U/L (13-56); Alkaline Phosphatase 51 U/L (45-117); Anion Gap 5 (5-15); BUN 9 mg/dL (7-18); BUN/Creat Ratio 12.7 RATIO (10-20); Calcium,Total 8.8 mg/dL (8.5-10.1); Chloride 103 mmol/L (98-107); Cholesterol 171 mg/dL (200); Creatinine, Serum 0.71 mg/dL (0.55-1.02); EST Glomerular Filtration Rate 85 mL/min (>60); Est Glom Filt Rate - Afr Amer 103 mL/min (>60); Glucose 113 mg/dL (74-106); High Density Lipoprotein 83 mg/dL; Potassium 4.4 mmol/L (3.5-5.1); Sodium Level 133 mmol/L (136-145); Triglycerides 62 mg/dL; Very Low Density Lipoprotein 12 mg/dL (5-40)
[2023-10-30 16:10] LABS: Alpha-1-Globulins 0.3 g/dL (0.0-0.4); Alpha-2-Globulins 0.9 g/dL (0.4-1.0); Free Lambda Light Chains 9.6 mg/L (5.7-26.3); Gamma Globulin 0.7 g/dL (0.4-1.8); IMMUNOFIXATION RESULT,S Comment: (.); Immunoglobulin A 133 mg/dL (64-422); Immunoglobulin G 712 mg/dL (586-1602); Immunoglobulin M 25 mg/dL (26-217); PROEL- TOTAL PROTEIN 6.9 g/dL (6.0-8.5)
== END | disposition home or self-care (01) ==
LOC: MTLAB 07:04
PROVIDERS: PCP Family Medicine; Referring Provider Psychiatry & Neurology Neurology; Visit Provider Psychiatry & Neurology Neurology
DX: G62.9 Polyneuropathy, unspecified (principal); E78.5 Hyperlipidemia, unspecified
CPT/HCPCS: 36415; 80053; 80061; 82784; 83883; 84165; 86334

== ENCOUNTER 2024-01-20 10:00 | Outpatient (RCR) | payer MEDICARE, SELFPAY ==
--- NOTE | 2023-11-16 12:48 | HP.PTEVAL_ITS ---
Patient's Visit Information Visit Information Visit Information: CHUCKY MCGOVERN is a 73 year old F referred to Physical Therapy by Dr. Lalit Blount MD with a diagnosis of Gait Ataxia, Leg Weakness, Tremor. Date of Evaluation: 11/09/23 Physical Therapist: Gifty Willson PT, Cert MDT Visit Plan Frequency: 2-3x /Week Duration: 4-6 Weeks Plan: BALANCE ASSESSMENT TEST NEXT VISIT. GAIT AND BALANCE TRAINING. CORE STRENGTH AND STABILITY TRAINING. ALTAGRACIA LE STRETCHING AND STRENGTHENING. Subjective Subjective: Work/Leisure: RETIRED. LIVES ALONE. DRIVES. DAUGHTER LIVES ACROSS THE STREET. Present symptoms: PATIENT REPORTS SHE IS HERE BECAUSE SHE IS HAVING TROUBLE GETTING AROUND. Present since: ABOUT 2 YEARS Pain Scale: PATIENT DENIES PAIN Is it getting better, worse or staying the same: GETTING WORSE Commenced as a result of: SPINAL STENOSIS EFFECTING LLE. Previous history/Previous treatment: PHYSICAL THERAPY OVER A YEAR AGO FOR SPIN AL STENOSIS AND BALANCE WITH BENEFIT. PATIENT DENIES ANY FALLS. NO BACK SURGERY. L KNEE SCOPE YEARS AGO. NO MAO'S. DENIES H/O PAIN MGMT. DENIES PRESCRIPTION MEDICATION FOR BACK OR BALANCE. REPORTS HER BALANCE STARTED GETTING WORSE OVER THIS PAST WINTER. Treatment this episode: NONE Gait: USES CANE IN THE HOUSE AND USES CANE TO GET IN AND OUT OF THE HOUSE. 3 STEPS IN THE GARAGE TO THE CAR WITH HR. LEAVES THE WALKER (FWW) IN THE CAR TO USE OUTSIDE OF HOME. ALSO HAS ROLLATOR IN THE HOUSE THAT SHE CAN USE TO MOVE THINGS IF SHE NEEDS TO. Bowel or Bladder Dysfunction: NO Accidents: NO Unexplained weight loss: NO Imaging: NONE RECENT PMH/Recent major surgery: HTN. TIA ABOUT 5 YEARS AGO. HAVING DENTURE PROBLEMS SO HAVING DIFFICULTY TALKING BUT TRYING TO GET THEM FIXED. L KNEE SCOPE A LONG TIME AGO. Objective Objective: Sitting/Standing Posture: SCOLIOSIS. RIGHT ILIAC CREST HIGHER THAN L. DECREASED LORDOSIS. INCREASED KYPHOSIS. FORWARD HEAD AND ROUNDED SHOULDERES. ALTAGRACIA ANKLE SUPINATION R > L. Active Correction of posture: NE. DENIES PAIN. ABLE TO PARTIALLY CORRECT. DOES NOT MAINTAIN. Other Observations: THIS PATIENT AMBULATES INDEP'LY INTO PT TODAY WITH A FWW. FUNCTIONAL GAIT ASSESSMENT PERFORMED WITH FWW TODAY - SEE BELOW. PATIENT IS PLEASANT AND COOPERATIVE TO WORK WITH AND FOLLOWS COMMANDS WELL. Sensory deficit: ALTAGRACIA LE LIGHT TOUCH SENSATION GROSSLY INTACT AND SYMMETRICAL ROM deficit: ALTAGRACIA HS AND GASTROC SOLEUS COMPLEX TIGHTNESS Motor deficit: ALTAGRACIA LE'S GROSSLY 4-/5 WITH MMT'ING. Reflexes: 1+/2 ALTAGRACIA QUADS. UNABLE TO ELICIT ALTAGRACIA ACHILLES DTR'S. Dural Signs: NEGATIVE ALTAGRACIA LE'S. Lumbar mvmt loss: flex - NIL ext - SURESH R SG - SURESH L SG - SURESH Core strength: POOR Palpation: NO ACUTE BACK OR LE TENDERNESS. Balance/Special Test Scores Functional Gait Assessment Score: 6 % Disability: 80.0000 CATSIB Score (Max score 120 seconds): 120 Lower Extremity Functional Score: 23 Goals Goal 1:: PATIENT WILL REPORT AT LEAST 50% IMPROVEMENT IN HER ABILITY TO GET AROUND. Goal Time Frame: 4-6 Weeks Goal 2:: PATIENT WILL HAVE AT LEAST AN 8 POINT IMPROVEMENT ON HER FGA SCORE Goal Time Frame: 4-6 Weeks Goal 3:: PATIENT WILL HAVE AT LEAST 1/2 MUSCLE GRADE STRENGTH IMPROVEMENT IN ALL INVOLVED MUSCULATURE Goal Time Frame: 4-6 Weeks Goal 4:: PATIENT WILL BE INDEP WITH A HEP Goal Time Frame: 4-6 Weeks Rehabilitation Potential Physical Therapy Diagnosis: THIS PATIENT PRESENTS TO PT WITH UNSTEADY GAIT, TRUNK AND LE WEAKNESS, TRUNK AND LE STIFFNESS AND LACK OF APPROPRIATE INDEP EX KNOWLDEDGE FOR THESE ISSUES. Rehabilitation Potential: Good Anticipated Interventions Patient/Client Instruction: Educate patient on: Condition, Plan of Care and Risk Factors For the Purpose of:: To improve self management Therapeutic Exercise to Include: Strength training, Balance training, Postural training, Flexibilty training, Gait and locomotor training and Neuromotor development For the Purpose of:: To improve muscle performance and motor function, To improve performance and independence with ADL's, To improve ability of physical actions for home/community/work/leisure, To improve gait and locomotor functions, To increase flexibility/ROM, To improve balance and To improve safety with gait Text: Thank you for the opportunity to evaluate your patient. For Medicare and Medicare HMO plans, please review the plan of care and approve it. It will need to be FAXED BACK to us at [phone] for Medicare purposes. For Medicare only, by signing this I certify the plan of care. Please let me know if there are questions or concerns regarding this plan of care. Physician Signature: Date:
--- NOTE | 2023-11-16 13:32 | HP.PTCOM ---
PT Communication Note 11/16/[address] Lalit Blount MD , Thank you for the referral of Ino to [facility] for her unsteadiness and balance test. We attempted two balance test on Ino this day. The Limits of Stability Test was not tolerated well by patient as she could not really posteriorly shift her weeight to get to the neutral position in order to move the test along. She also had no ability to safely shift her weight posteriorly. Therefore no results were able to be computed on this test. During her Modified CATSIB test on the [employer], she actually did rather well. She had no LOB on any condition and results of this test were within normal limits for her age in all conditions. These results were erroneously deleted by this therapist and so no other paperwork will accompany this note, my apologies. However, these results are consistent with her presentation of difficulty shifting her weight in order to achieve a safe and functional gait pattern. She has a dysfunctional left step length about 1/3 of the time due to her lack of ability to shift weight side to side to progress foot and constant forward weight shifting bringing her feet down prematurely in swing. I plan to incorporate these aspects into her POC in order to facilitate her improvement. Please feel free to contact me if there are any questions. Sincerely, Lalit aH, DPT, OCS, CSCS Contact Information
--- NOTE | 2023-12-14 10:57 | HP.PTREVAL_ITS ---
Re-Evaluation Intro: Dr. Lalit Blount MD, It has been my pleasure to treat CHUCKY MCGOVERN over the last 9 visits for Gait Ataxia, Leg Weakness, Tremor. Please see the progress note below for an update on the physical therapy plan of care! Subjective Subjective: PATIENT REPORTS THERAPY IS HELPING. SHE REPORTS SHE IS DOING HER EX'S AT HOME AND SHE CAN GET UP FROM CHAIRS BETTER NOW. 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 SHE RELATES HER LBP TO BENDING, MOVING AROUND AND THE RAIN - NOT PT. NO KNEE PAIN TODAY. SHE STATES SHE WOULD LIKE TO CONTINUE PT BECAUSE IT IS HELPING HER. Objective Objective/Function: PATIENT WAS SEEN TODAY FOR RE-ASSESSMENT OF PROGRESS TOWARD THE SET PT GOALS AND THE NEED FOR FURTHER PHYSICAL THERAPY VS READINESS FOR DISCHARGE. PATIENT IS IMPROVING. UPON EXAM TODAY: SEE FGA BELOW TUG 34.25 SEC WITH FWW 30 SEC STS 6 WITH ONE UE Plan Plan Plan: GAIT AND BALANCE TRAINING. CORE STRENGTH AND STABILITY TRAINING. ALTAGRACIA LE STRETCHING AND STRENGTHENING. Include weight shifting training in all directions emphasizing posterior and long step length with L in gait pattern. Balance/Gait/Functional tests Balance/Special Test Scores Functional Gait Assessment Score: 10 % Disability: 66.6700 CATSIB Score (Max score 120 seconds): 120 Lower Extremity Functional Score: 30 TUG Test Time Seconds: 34.25 Tug Test: >30sec.=impaired mobility 30 Second Chair Rise Test Seconds: 6 Goals Goals Goal 1:: PATIENT WILL REPORT AT LEAST 50% IMPROVEMENT IN HER ABILITY TO GET AROUND. Goal Time Frame: 4-6 Weeks Goal Progress: Progressing Goal 2:: PATIENT WILL HAVE AT LEAST AN 8 POINT IMPROVEMENT ON HER FGA SCORE Goal Time Frame: 4-6 Weeks Goal Progress: Progressing Goal 3:: PATIENT WILL HAVE AT LEAST 1/2 MUSCLE GRADE STRENGTH IMPROVEMENT IN ALL INVOLVED MUSCULATURE Goal Time Frame: 4-6 Weeks Goal 4:: PATIENT WILL BE INDEP WITH A HEP Goal Time Frame: 4-6 Weeks Goal Progress: Progressing Goal 5:: NEW GOAL: PATIENT WILL COMPLETE 6 STANDS IN 30 SECS WITHOUT UE ASSIST TO DEMONSTRATE IMPROVED FUNCTIONAL STRENGTH AND BALANCE Goal Time Frame: 4-6 Weeks Goal 6:: PATIENT WILL COMPLETE TUG IN < 30 SECS WITH FWW TO DEMONSTRATE IMPROVED GAIT STABILITY Goal Time Frame: 4-6 Weeks Anticipated Interventions Anticipated Interventions Patient/Client Instruction: Educate patient on: Condition, Plan of Care and Risk Factors For the Purpose of:: To improve self management Therapeutic Exercise to Include: Strength training, Balance training, Postural training, Flexibilty training, Gait and locomotor training and Neuromotor development For the Purpose of:: To improve muscle performance and motor function, To improve performance and independence with ADL's, To improve ability of physical actions for home/community/work/leisure, To improve gait and locomotor functions, To increase flexibility/ROM, To improve balance and To improve safety with gait Re-Evaluation Ending Re-evaluation ending: Please do not hesitate to contact me at [phone] by phone or if you have questions or concerns regarding this new plan of care! Sincerely, Gifty Willson, PT, Cert MDT
--- NOTE | 2024-01-20 12:02 | HP.PTDCSUM_ITS ---
Discharge Summary D/C summary: It has been my pleasure to treat CHUCKY MCGOVERN referred by Dr. Lalit Blount MD, with the diagnosis of Gait Ataxia, Leg Weakness, Tremor for a total of 15 visit(s). Discharge Date: 01/20/24 Please see the following information for a summary of their discharge status. Subjective Subjective: PATIENT REPORTS SHE IS DOING HER HEP. SHE REPORTS SHE SEE'S DR. BLOUNT FOR FOLLOW UP IN FEBRUARY. SHE STATES NEXT WEEK ISN'T GOOD FOR THERAPY AND SHE ACTUALLY WANTS A BREAK. PATIENT REPORTS SHE IS DOING HER HEP. SHE REPORTS SOME DAYS SHE SEEMS TO GET AROUND BETTER THAN OTHERS BUT OVER-ALL SHE IS DOING ABOUT THE SAME SHE WAS ABOUT A MONTH AGO. Pain Left Low back: Pain Intensity (Out of 10): Unrated Overall Improvement % Improvement: 25 Objective Objective/Function: OVER-ALL PATIENT IS NOT PROGRESSING WITH GAIT, BALANCE AND STRENGTH WITH PT AT THIS TIME. THERE ARE NO SIGNIFICANT CHANGES SINCE LAST RE- CHECK AND HER LEFS SCORE IS ABOUT THE SAME ALSO. SHE IS ON A HEP AND APPROPRIATE FOR AND AGREEABLE TO DISCHARGE AT THIS TIME. UPON EXAM TODAY: TUG 33.10 SEC WITH FWW 30 SEC STS 6 WITH ONE UE (SHE IS UNABLE TO PERFORM SIT TO STAND WITHOUT UE ASSIST. SHE CONTINUES TO LOSE HER BALANCE BACKWARDS UPON ATTEMPT WITHOUT UE ASSIST). Goals Goal 1:: PATIENT WILL REPORT AT LEAST 50% IMPROVEMENT IN HER ABILITY TO GET AROUND. Goal Progress: Not Progressing Goal 2:: PATIENT WILL HAVE AT LEAST AN 8 POINT IMPROVEMENT ON HER FGA SCORE Goal Progress: Not Progressing Goal 3:: PATIENT WILL HAVE AT LEAST 1/2 MUSCLE GRADE STRENGTH IMPROVEMENT IN ALL INVOLVED MUSCULATURE Goal 4:: PATIENT WILL BE INDEP WITH A HEP Goal Progress: Goal Met Goal 5:: NEW GOAL: PATIENT WILL COMPLETE 6 STANDS IN 30 SECS WITHOUT UE ASSIST TO DEMONSTRATE IMPROVED FUNCTIONAL STRENGTH AND BALANCE Goal Progress: Not Progressing Goal 6:: PATIENT WILL COMPLETE TUG IN < 30 SECS WITH FWW TO DEMONSTRATE IMPROVED GAIT STABILITY Goal Progress: Not Progressing Plan Plan: D/C TO HEP. D/C Information d/c sentence: If there are questions or concerns regarding this patient's physical therapy, please feel free to call me at [phone]. Thank you for the referral of this patient. Sincerely, Gifty Willson, PT, Cert MDT Balance/Gait/Functional tests Balance/Special Test Scores Functional Gait Assessment Score: 10 % Disability: 66.6700 CATSIB Score (Max score 120 seconds): 120 Lower Extremity Functional Score: 29 TUG Test Time Seconds: 34.25 Tug Test: >30sec.=impaired mobility 30 Second Chair Rise Test Seconds: 6 Improvement % Improvement: 25
== END 2024-01-20 13:34 | disposition home or self-care (01) ==
LOC: PT 10:00
PROVIDERS: PCP Family Medicine; Referring Provider Family Medicine; Visit Provider Family Medicine
DX: R26.0 Ataxic gait (principal); R29.898 Other symptoms and signs involving the musculoskeletal system; R25.1 Tremor, unspecified
CPT/HCPCS: 97110; 97116; 97162; 97530; 97750

== ENCOUNTER → 2024-05-12 | Outpatient (CLI) | payer MEDICARE, SELFPAY ==
[2024-05-12 10:21] LABS: Absolute Neutrophil Count 2.2 X10^3/uL (2.0-7.7); Basophil# 0.05 X10^3/uL; Eosinophil# 0.18 X10^3/uL; Eosinophils% 3.5 % (0-5); Hematocrit 37.9 % (37-47); Hemoglobin 12.5 g/dL (12.0-15.0); Lymphocyte % 36.5 % (19-41); Mean Platelet Vol. 8.9 fl (6.2-12.0); Monocyte# 0.82 X10^3/uL; Monocyte% 15.8 % (0-10); NRBC Flagged by Analyzer 0 % (0-5); Neutrophil # 2.23 X10^3/uL (2.7-7.7); Neutrophil % 42.8 % (47-70); Platelet Count 276 K/mm3 (150-450); RBC Distribution Width CV 13.1 % (11.6-14.6); Red Blood Count 4.03 M/mm3 (4.2-5.4); White Blood Count 5.2 K/mm3 (4.4-11.0)
[2024-05-12 11:27] LABS: ALB/GLOB Ratio 1.3 RATIO (0.9-2.4); AST(SGOT) 11 U/L (15-37); Alanine Aminotransfer ALT/SGPT 17 U/L (13-56); Albumin, Serum 4.1 g/dL (3.2-5.0); Alkaline Phosphatase 52 U/L (45-117); Anion Gap 6 (5-15); BUN 9 mg/dL (7-18); BUN/Creat Ratio 12.6 RATIO (10-20); Calcium,Total 9.4 mg/dL (8.5-10.1); Chloride 101 mmol/L (98-107); Cholesterol 171 mg/dL (200); Creatinine, Serum 0.72 mg/dL (0.55-1.02); EST Glomerular Filtration Rate 84 mL/min (>60); Est Glom Filt Rate - Afr Amer 102 mL/min (>60); Globulin 3.2 g/dL (2.2-4.2); Glucose 110 mg/dL (74-106); High Density Lipoprotein 100 mg/dL; Potassium 4.7 mmol/L (3.5-5.1); Protein, Total 7.3 g/dL (6.4-8.2); Sodium Level 132 mmol/L (136-145); Triglycerides 69 mg/dL; Very Low Density Lipoprotein 14 mg/dL (5-40)
[2024-05-18 11:09] LABS: Albumin 4.2 g/dL (2.9-4.4); Alpha-1-Globulins 0.3 g/dL (0.0-0.4); Alpha-2-Globulins 0.8 g/dL (0.4-1.0); Gamma Globulin 0.6 g/dL (0.4-1.8); IMMUNOFIXATION RESULT,S Comment: (.); Immunoglobulin A 125 mg/dL (64-422); Immunoglobulin G 695 mg/dL (586-1602); Immunoglobulin M 13 mg/dL (26-217); PROEL- TOTAL PROTEIN 6.8 g/dL (6.0-8.5)
== END | disposition home or self-care (01) ==
PROVIDERS: PCP Family Medicine; Referring Provider Psychiatry & Neurology Neurology; Visit Provider Psychiatry & Neurology Neurology
DX: J44.9 Chronic obstructive pulmonary disease, unspecified (principal); I10 Essential (primary) hypertension; R27.0 Ataxia, unspecified
CPT/HCPCS: 36415; 80053; 80061; 82784; 84165; 84443; 85025; 86334

== ENCOUNTER → 2024-12-29 | Outpatient (CLI) | payer MEDICARE, SELFPAY ==
--- NOTE | 2024-12-29 08:09 | CT_ITS ---
PROCEDURE: LOW DOSE CT LUNG SCREENING 12/29/2024 REASON FOR EXAM: SCREEN LUNG CANCER TECHNIQUE: Low Dose CT Lung screening without contrast. Coronal and Sagittal reconstruction series were provided. One or more dose reduction techniques were used (e.g., Automated exposure control, adjustment of the mA and/or kV according to patient size, use of iterative reconstruction technique). REFERENCE LINK: [employer] Lung-RADS RADIATION DOSE SUMMARY: CTDlvol: 3.0 mGy DLP: 80 mGycm COMPARISON: CT chest dated 01/23/2023 FINDINGS: Lymph Nodes:Unremarkable Heart and Vasculature:No significant cardiomegaly. Severe coronary calcifications.Aortic atherosclerosis. Lungs and Airways: Respiratory motion at the lung bases slightly limits this evaluation. Central airways are clear. Triangular perifissural nodule in the right lower lobe measuring 3 mm (series 2, image 109). Linear scarring or atelectasis at the left lung base. Pleura:No effusion Upper Abdomen:Unremarkable Bones:Degenerative changes of the thoracic spine. CT/Low Dose CT Lung Screening IMPRESSION: Lung-RADS Category: 2 BENIGN (BASED ON IMAGING FEATURES OR INDOLENT BEHAVIOR). RECOMMEND 12-MONTH SCREENING LDCT. Other Significant Findings: Severe coronary calcification. Reading Location: [facility]
--- NOTE | 2024-12-29 08:31 | BI_ITS ---
EXAM: SCRN MAMM (CAD)W/NEYDA BILAT DATE: 12/29/2024 CLINICAL HISTORY: F, Age 74 y/o , SCREENING BREAST CANCER RISK ASSESSMENT: Na TECHNIQUE: Bilateral screening digital breast tomosynthesis with 2D and 3D images. Computer aided detection.
== END | disposition home or self-care (01) ==
LOC: CT 08:09
PROVIDERS: PCP Family Medicine; Referring Provider Nurse Practitioner Family; Visit Provider Nurse Practitioner Family
DX: Z12.31 Encounter for screening mammogram for malignant neoplasm of breast (principal); Z12.2 Encounter for screening for malignant neoplasm of respiratory organs; F17.210 Nicotine dependence, cigarettes, uncomplicated
CPT/HCPCS: 71271; 77063; 77067

== ENCOUNTER → 2025-01-30 | Outpatient (CLI) | payer MEDICARE, SELFPAY ==
[2025-01-30 10:41] LABS: Hematocrit 37.7 % (37-47); Hemoglobin 12.8 g/dL (12.0-15.0); Immature Granulocytes Count 0.010 X10^3/uL (0.0-0.0); Mean Corp Hgb Conc 34.0 g/dL (32-36); Mean Corpuscular Volume 91.3 fL (81-99); Mean Platelet Vol. 8.8 fl (6.2-12.0); NRBC Flagged by Analyzer 0 % (0-5); Platelet Count 284 K/mm3 (150-450); RBC Distribution Width CV 13.2 % (11.6-14.6); RBC Distribution Width SD 44.3 fl (35.1-43.9); Red Blood Count 4.13 M/mm3 (4.2-5.4); White Blood Count 6.5 K/mm3 (4.4-11.0)
[2025-01-30 10:42] LABS: AST(SGOT) 22 U/L (<=31); Alanine Aminotransfer ALT/SGPT 15 U/L (<=34); Albumin, Serum 4.6 g/dL (3.4-4.8); Alkaline Phosphatase 54 U/L (35-104); Anion Gap 13 (5-15); BUN 8 mg/dL (4-19); BUN/Creat Ratio 9.2 RATIO (10-20); Calcium,Total 9.4 mg/dL (7.6-11.0); Carbon Dioxide 20.9 mmol/L (21.0-32.0); Chloride 96 mmol/L (98-108); Globulin 2.4 g/dL (2.2-4.2); Glucose 114 mg/dL (70-99); Potassium 4.9 mmol/L (3.3-5.1)
== END | disposition home or self-care (01) ==
LOC: MTLAB 07:15
PROVIDERS: PCP Family Medicine; Referring Provider Family Medicine; Visit Provider Family Medicine
DX: J44.9 Chronic obstructive pulmonary disease, unspecified (principal); E22.2 Syndrome of inappropriate secretion of antidiuretic hormone
CPT/HCPCS: 36415; 80053; 85025